=== PATIENT | female | born 1970 | race Caucasian/White ===

== ENCOUNTER → 2017-01-08 | Outpatient (CLI) | payer BC ==
[~2017-01-08] MED LIST: FLAGYL500 MG PO; LEVAQUIN 750MG750 M1 PO; NORCO 325 MG-51 TAB PO; ZOFRAN ODT4 MG PO
== END ==
LOC: MC.RAD 11:30
DX: Z12.31 Encounter for screening mammogram for malignant neoplasm of breast (principal); N63 Unspecified lump in breast

== ENCOUNTER → 2017-01-19 | Outpatient (CLI) | payer BC | LOC: MC.RAD 09:30 | DX: N63 Unspecified lump in breast (principal) ==

== ENCOUNTER 2017-05-09 14:26 | Emergency (ER) | payer OTHER ==
[~2017-05-09] VITALS: Ht 165.1 cm; Wt 84.1 kg
[2017-05-09 14:27] VITALS: BP 184/83; PULSE 71; TEMP 97.9
== END 2017-05-09 15:44 | disposition home or self-care (01) ==
LOC: COL.ER 14:26
DX: S92.421A Displaced fracture of distal phalanx of right great toe, initial encounter for closed fracture (principal); W22.8XXA Striking against or struck by other objects, initial encounter

== ENCOUNTER 2017-10-11 13:32 | Emergency (ER) | payer OTHER ==
[~2017-10-11] VITALS: Ht 165.1 cm; Wt 81.8 kg
[2017-10-11 13:48] VITALS: BP 141/85; PULSE 79; TEMP 97.9
[2017-10-11] MEDS ORDERED: NORCO 325 MG-51 TAB PO (15:04)
== END 2017-10-11 15:48 | disposition home or self-care (01) ==
LOC: COL.ER 13:32
DX: S52.571A Other intraarticular fracture of lower end of right radius, initial encounter for closed fracture (principal); Z87.81 Personal history of (healed) traumatic fracture; W01.0XXA Fall on same level from slipping, tripping and stumbling without subsequent striking against object, initial encounter; Y99.0 Civilian activity done for income or pay

== ENCOUNTER → 2017-10-16 | Outpatient (CLI) | payer OTHER | LOC: COL.RAD 12:18 | DX: Z46.89 Encounter for fitting and adjustment of other specified devices (principal); S52.501A Unspecified fracture of the lower end of right radius, initial encounter for closed fracture ==

== ENCOUNTER 2018-01-02 11:00 | Outpatient (RCR) | payer OTHER | END 2018-02-15 15:03 | disposition home or self-care (01) | LOC: WSOT 11:00 | DX: S52.511D Displaced fracture of right radial styloid process, subsequent encounter for closed fracture with routine healing (principal); Z96.698 Presence of other orthopedic joint implants ==

== ENCOUNTER 2018-05-16 11:00 | Outpatient (RCR) | payer OTHER | END 2018-06-25 17:17 | disposition home or self-care (01) | LOC: WSOT 11:00 | DX: S66.00 Unspecified injury of long flexor muscle, fascia and tendon of thumb at wrist and hand level (principal) ==

== ENCOUNTER 2022-03-02 09:37 | Emergency (ER) | payer OTHER ==
[~2022-03-02] VITALS: Ht 165.1 cm; Wt 88.2 kg
[2022-03-02 09:45] VITALS: TEMP 97.8
[2022-03-02] MEDS ORDERED: NEXIUM 24HR20 M1 PO (09:49)
[2022-03-02 10:31] VITALS: BP 153/102; PULSE 71
== END 2022-03-02 10:31 | disposition home or self-care (01) ==
LOC: COL.ER 09:37
DX: T18.128A Food in esophagus causing other injury, initial encounter (principal)